=== PATIENT | female | born 1950 | race Caucasian/White ===

== ENCOUNTER 2020-10-26 08:53 | Inpatient (IN) ==
[2020-10-26] MEDS ORDERED: SODIUM CHLORIDE 0.9% 1,000 ML IV STA (09:32)
[2020-10-26 10:16] LABS: Basophils # 0.1 10*3/uL (0.0-0.2); Basophils % 0.6 % (0.0-0.8); Hematocrit 43.1 VOL% (35.7-47.0); Hemoglobin 13.2 GM/DL (12.0-16.0); Immature Granulocytes % 0.5 %; Immature Granulocytes Absolute 0.05 #; Lymphocytes # 1.2 10*3/uL (1.4-4.0); Lymphocytes % 12.6 % (21.3-54.2); Mean Corpuscular HGB Conc 30.6 GM/DL (32-36); Mean Corpuscular Volume 82.1 FL (87-102); Mean Platelet Volume 9.9 FL (9.6-12.0); Neutrophils % 79.3 % (38.7-73.9); Platelet Count 304 T/CUMM (130-400); Red Blood Count 5.25 MC/CUMM (3.8-5.5); White Blood Count 9.6 T/CUMM (4-12)
[2020-10-26 10:25] LABS: Bilirubin,Urine Negative (Negative); Blood, Urine Negative (Negative); Glucose,Urine (UA) >=500 mg/dL (Negative); Ketones,Urine Negative (Negative); Mucus,Urine Occasional /LPF (Occasional); Nitrite,Urine Negative (Negative); Protein,Urine Negative; RBC,Urine 1 /HPF (0-4); Squamous Epithelial Cell,Urine Occasional /HPF (0-10); Urine Appearance Slightly Hazy (Clear); Urine Color Yellow (Yellow); Urine Specific Gravity 1.015 (1.001-1.035); Urine Urobilinogen < 2.0 EU/DL (0.2-1.0)
[2020-10-26 10:44] LABS: Atypical Lymphocytes Few; Band Neutrophils 10 % (0-10); Lymphocytes 15 % (20-55); Segmented Neutrophils 68 % (50-85); Total Cells Counted 100
[2020-10-26 10:45] LABS: Hypochromasia 1+; Microcytosis 1+; Ovalocytes Slight
[2020-10-26 11:02] LABS: Alanine Aminotransferase 27 U/L (13-56); Albumin 3.1 G/DL (3.4-5.0); Alkaline Phosphatase 43 U/L (45-117); Aspartate Amino Transferase 30 U/L (0-37); Blood Urea Nitrogen 41 MG/DL (7-18); Calcium 9.5 MG/DL (8.5-10.1); Carbon Dioxide 19 MMOL/L (21-32); Estimated Glom Filtration Rate 16 ML/MIN; Glucose 231 MG/DL (74-106); Osmolality,Calculated 276.8 MOS/KG (273-304); Potassium 3.8 MMOL/L (3.5-5.1); Sodium 130 MMOL/L (136-145); Total Protein 7.1 G/DL (6.4-8.2)
[2020-10-26] MEDS ORDERED: DEXTROSE 50% 25 GM/50 ML VIAL IV PRN ×2 (12:12)
[2020-10-26] MEDS ORDERED: GLUCAGON 1 MG VIAL IM PRN ×2 (12:12)
[2020-10-26] MEDS: ACETAMINOPHEN 325 MG TABLET PO PRN ×2 (12:53→17:42)
[2020-10-26] MEDS: SODIUM CHLORIDE 0.9% 1,000 ML IV SCH (16:42)
[2020-10-26] MEDS: metroNIDAZOLE INJ 500 MG/100 ML PREMIX IV SCH (17:42)
[2020-10-26] MEDS: HEPARIN 5,000 UNIT/1 ML VIAL SUBCUT SCH (17:42)
[2020-10-26] MEDS: INSULIN REGULAR 100 UNIT/ML SUBCUT SCH ×2 (17:43→21:32)
[2020-10-26] MEDS: PANTOPRAZOLE 40 MG VIAL IV SCH (21:16)
[2020-10-26] MEDS: CIPROFLOXACIN INJ 200 MG/100 ML PREMIX IV SCH (21:17)
[2020-10-26] MEDS: ONDANSETRON 4 MG/2 ML VIAL IV PRN (21:43)
[2020-10-27] MEDS: metroNIDAZOLE INJ 500 MG/100 ML PREMIX IV SCH ×3 (01:19→17:00)
[2020-10-27] MEDS: HEPARIN 5,000 UNIT/1 ML VIAL SUBCUT SCH ×2 (01:21→12:38)
[2020-10-27 05:22] LABS: Basophils % 0.4 % (0.0-0.8); Hematocrit 39.2 VOL% (35.7-47.0); Hemoglobin 11.9 GM/DL (12.0-16.0); Immature Granulocytes % 1.7 %; Immature Granulocytes Absolute 0.12 #; Lymphocytes # 1.1 10*3/uL (1.4-4.0); Lymphocytes % 15.8 % (21.3-54.2); Mean Corpuscular HGB Conc 30.4 GM/DL (32-36); Mean Corpuscular Volume 82.7 FL (87-102); Mean Platelet Volume 10.5 FL (9.6-12.0); Neutrophils % 78.1 % (38.7-73.9); Platelet Count 224 T/CUMM (130-400); Red Blood Count 4.74 MC/CUMM (3.8-5.5); Red Cell Distribution Width 16.2 % (9.3-17.3)
[2020-10-27 05:50] LABS: Band Neutrophils 16 % (0-10); Eosinophils 1 % (0-10); Lymphocytes 10 % (20-55); Segmented Neutrophils 69 % (50-85); Total Cells Counted 100
[2020-10-27 05:51] LABS: Platelet Estimate Normal
[2020-10-27 05:52] LABS: Calcium 8.4 MG/DL (8.5-10.1); Osmolality,Calculated 284.9 MOS/KG (273-304); Potassium 2.9 MMOL/L (3.5-5.1)
[2020-10-27] MEDS: POTASSIUM CHLORIDE RIDER 10 MEQ/100 ML PREMIX IV PRN ×3 (09:41→12:35)
[2020-10-27] MEDS: INSULIN REGULAR 100 UNIT/ML SUBCUT SCH ×4 (09:41→21:51)
[2020-10-27] MEDS: PANTOPRAZOLE 40 MG VIAL IV SCH ×2 (09:42→21:51)
[2020-10-27] MEDS ORDERED: MAGNESIUM SULF RIDER 2 GM/50 ML PREMIX IV ONE (11:27)
[2020-10-27] MEDS ORDERED: POTASSIUM CHLORIDE 20 MEQ TABLET PO ONE ×2 (11:28→20:50)
[2020-10-27] MEDS: ACETAMINOPHEN 325 MG TABLET PO PRN (12:45)
[2020-10-27] MEDS ORDERED: POTASSIUM CHLORIDE 10 MEQ TABLET PO ONE (13:09)
[2020-10-27] MEDS ORDERED: SODIUM BICARB INJ 50 MEQ in SODIUM CHLORIDE 0.45% 1,000 ML IV SCH (14:30)
[2020-10-27] MEDS ORDERED: SODIUM CHLORIDE 0.9% 1,000 ML IV SCH (14:30)
[2020-10-27] MEDS: CIPROFLOXACIN INJ 200 MG/100 ML PREMIX IV SCH (15:51)
[2020-10-27] MEDS ORDERED: SODIUM CHLORIDE 0.9% 500 ML IV ONE ×2 (16:21→17:08)
[2020-10-27 17:43] LABS: Calcium 7.3 MG/DL (8.5-10.1); Osmolality,Calculated 291.5 MOS/KG (273-304); Potassium 3.2 MMOL/L (3.5-5.1)
[2020-10-27 18:58] LABS: Basophils # 0.1 10*3/uL (0.0-0.2); Hematocrit 39.1 VOL% (35.7-47.0); Hemoglobin 12.5 GM/DL (12.0-16.0); Immature Granulocytes % 0.8 %; Immature Granulocytes Absolute 0.04 #; Lymphocytes # 0.8 10*3/uL (1.4-4.0); Lymphocytes % 15.8 % (21.3-54.2); Mean Corpuscular Volume 79.8 FL (87-102); Monocytes % 3.7 % (1.7-12.7); Neutrophils % 78.7 % (38.7-73.9); Platelet Count 158 T/CUMM (130-400); Red Cell Distribution Width 16.3 % (9.3-17.3); White Blood Count 5.1 T/CUMM (4-12)
[2020-10-27] MEDS ORDERED: SODIUM BICARBONATE 50 MEQ/50 ML VIAL IV ONE (19:17)
[2020-10-27] MEDS ORDERED: LACTATED RINGERS 1,000 ML IV ONE (19:18)
[2020-10-27 19:20] LABS: Band Neutrophils 32 % (0-10); Lymphocytes 14 % (20-55); Metamyelocytes 2 %; Myelocytes 1 %; Segmented Neutrophils 49 % (50-85); Total Cells Counted 100
[2020-10-27 19:21] LABS: Anisocytosis 2+; Burr Cells 2+; Macrocytosis 1+; Microcytosis 2+; Platelet Estimate Adequate; Poikilocytosis 2+
[2020-10-27 19:29] LABS: CKMB % 0.6 %
[2020-10-27 19:32] LABS: High Sensitive Troponin I* 141.6 ng/L (0-54)
[2020-10-27] MEDS: ROSUVASTATIN 20 MG TABLET PO SCH (21:51)
[2020-10-27] MEDS: HYDROCORTISONE 100 MG VIAL IV SCH (21:52)
[2020-10-27] MEDS: EZETIMIBE 10 MG TABLET PO SCH (21:52)
[2020-10-27] MEDS: FENOFIBRATE 160 MG TABLET PO SCH (21:52)
[2020-10-27] MEDS: POTASSIUM CHLORIDE RIDER 10 MEQ/100 ML PREMIX IV SCH ×2 (22:42→23:57)
[2020-10-27] MEDS: SODIUM BICARB INJ 150 MEQ in DEXTROSE 5% 850 ML IV SCH (22:51)
[2020-10-27 23:26] LABS: Hepatitis B Core IgM Quant 0.08 Index; Hepatitis B Surface Ag Quant < 0.10 Index; Hepatitis B Surface Ag Result Non-Reactive (NonReactive); Hepatitis C Virus Ab Quant 0.05 Index; Hepatitis C Virus Ab Result Non-Reactive (NonReactive)
[2020-10-28] MEDS: metroNIDAZOLE INJ 500 MG/100 ML PREMIX IV SCH ×3 (00:25→16:56)
[2020-10-28] MEDS: POTASSIUM CHLORIDE RIDER 10 MEQ/100 ML PREMIX IV SCH ×2 (01:00→01:58)
[2020-10-28] MEDS: HEPARIN 5,000 UNIT/1 ML VIAL SUBCUT SCH ×2 (01:26→13:24)
[2020-10-28] MEDS: NOREPINEPHRINE 8 MG in SODIUM CHLORIDE 0.9% 242 ML IV PRN ×2 (02:21→13:48)
[2020-10-28 04:20] LABS: Basophils % 0.3 % (0.0-0.8); Eosinophils % 0.1 % (0.00-10.9); Hematocrit 34.4 VOL% (35.7-47.0); Immature Granulocytes % 0.7 %; Immature Granulocytes Absolute 0.08 #; Lymphocytes # 1.5 10*3/uL (1.4-4.0); Lymphocytes % 13.3 % (21.3-54.2); Mean Corpuscular Volume 78.9 FL (87-102); Mean Platelet Volume 10.4 FL (9.6-12.0); Monocytes % 3.9 % (1.7-12.7); Neutrophils % 81.7 % (38.7-73.9); Platelet Count 328 T/CUMM (130-400); Red Blood Count 4.36 MC/CUMM (3.8-5.5); Red Cell Distribution Width 16.2 % (9.3-17.3); White Blood Count 11.6 T/CUMM (4-12)
[2020-10-28] MEDS ORDERED: LACTATED RINGERS 500 ML IV ONE (04:27)
[2020-10-28 04:41] LABS: Albumin 2.2 G/DL (3.4-5.0); Bilirubin,Total 0.4 MG/DL (0.20-1.00); Calcium 7.4 MG/DL (8.5-10.1); Osmolality,Calculated 296.4 MOS/KG (273-304); Potassium 3.1 MMOL/L (3.5-5.1); Total Protein 5.5 G/DL (6.4-8.2)
[2020-10-28] MEDS ORDERED: LACTATED RINGERS 1,000 ML IV ONE (04:52)
[2020-10-28 05:12] LABS: Band Neutrophils 10 % (0-10); Hypochromasia Slight; Lymphocytes 9 % (20-55); Platelet Estimate Adequate; Segmented Neutrophils 78 % (50-85); Total Cells Counted 100
[2020-10-28 05:13] LABS: Burr Cells Slight; Microcytosis Slight; Ovalocytes Slight
[2020-10-28] MEDS: HYDROCORTISONE 100 MG VIAL IV SCH ×3 (05:30→22:05)
[2020-10-28] MEDS: SODIUM CHLORIDE 0.9% 1,000 ML IV SCH (08:00)
[2020-10-28] MEDS: SODIUM BICARB INJ 150 MEQ in DEXTROSE 5% 850 ML IV SCH ×2 (08:51→20:31)
[2020-10-28] MEDS: INSULIN REGULAR 100 UNIT/ML SUBCUT SCH ×4 (09:23→21:30)
[2020-10-28] MEDS: INSULIN GLARGINE 100 UNIT/ML SUBCUT SCH (09:25)
[2020-10-28] MEDS: LEVOTHYROXINE 50 MCG TABLET PO SCH (09:25)
[2020-10-28] MEDS: POTASSIUM CHLORIDE 20 MEQ TABLET PO PRN ×4 (09:25→16:30)
[2020-10-28] MEDS: PANTOPRAZOLE 40 MG VIAL IV SCH ×2 (09:25→21:30)
[2020-10-28] MEDS: CIPROFLOXACIN INJ 200 MG/100 ML PREMIX IV SCH (11:19)
[2020-10-28] MEDS: LOPERAMIDE 2 MG CAPSULE PO PRN ×3 (14:48→21:30)
[2020-10-28] MEDS: ONDANSETRON 4 MG/2 ML VIAL IV PRN (21:35)
[2020-10-28] MEDS: ROSUVASTATIN 20 MG TABLET PO SCH (22:05)
[2020-10-28] MEDS: FENOFIBRATE 160 MG TABLET PO SCH (22:06)
[2020-10-28] MEDS: EZETIMIBE 10 MG TABLET PO SCH (22:06)
[2020-10-29] MEDS: metroNIDAZOLE INJ 500 MG/100 ML PREMIX IV SCH (00:01)
[2020-10-29] MEDS: HEPARIN 5,000 UNIT/1 ML VIAL SUBCUT SCH ×2 (00:01→12:04)
[2020-10-29] MEDS: CIPROFLOXACIN INJ 200 MG/100 ML PREMIX IV SCH (03:33)
[2020-10-29] MEDS: HYDROCORTISONE 100 MG VIAL IV SCH ×3 (06:00→22:11)
[2020-10-29] MEDS: LOPERAMIDE 2 MG CAPSULE PO PRN (06:00)
[2020-10-29 06:02] LABS: Basophils % 0.3 % (0.0-0.8); Hematocrit 29.2 VOL% (35.7-47.0); Hemoglobin 9.7 GM/DL (12.0-16.0); Immature Granulocytes Absolute 0.09 #; Lymphocytes # 1.5 10*3/uL (1.4-4.0); Lymphocytes % 16.3 % (21.3-54.2); Mean Corpuscular HGB Conc 33.2 GM/DL (32-36); Mean Platelet Volume 10.7 FL (9.6-12.0); Monocytes % 8.3 % (1.7-12.7); Neutrophils % 74.1 % (38.7-73.9); Platelet Count 230 T/CUMM (130-400); Red Blood Count 3.84 MC/CUMM (3.8-5.5); Red Cell Distribution Width 15.9 % (9.3-17.3)
[2020-10-29 06:16] LABS: Bilirubin,Urine Negative (Negative); Blood, Urine Moderate mg/dL (Negative); Glucose,Urine (UA) >=500 mg/dL (Negative); Ketones,Urine Negative (Negative); Mucus,Urine Occasional /LPF (Occasional); Nitrite,Urine Negative (Negative); Protein,Urine Negative; RBC,Urine 3 /HPF (0-4); Urine Appearance CLEAR (Clear); Urine Color Yellow (Yellow); Urine Specific Gravity 1.016 (1.001-1.035); Urine Urobilinogen < 2.0 EU/DL (0.2-1.0)
[2020-10-29 06:28] LABS: Calcium 7.4 MG/DL (8.5-10.1); Osmolality,Calculated 298.5 MOS/KG (273-304)
[2020-10-29 06:34] LABS: Band Neutrophils 4 % (0-10); Hypochromasia 1+; Lymphocytes 13 % (20-55); Microcytosis 1+; Platelet Estimate Adequate; Segmented Neutrophils 74 % (50-85); Total Cells Counted 100
[2020-10-29 07:10] LABS: Potassium 2.5 MMOL/L (3.5-5.1)
[2020-10-29] MEDS: SODIUM BICARB INJ 150 MEQ in DEXTROSE 5% 850 ML IV SCH (07:52)
[2020-10-29] MEDS: POTASSIUM CHLORIDE 20 MEQ TABLET PO PRN (07:54)
[2020-10-29] MEDS: INSULIN REGULAR 100 UNIT/ML SUBCUT SCH ×4 (07:54→21:35)
[2020-10-29] MEDS ORDERED: SODIUM CHLORIDE 0.9% 1,000 ML IV ONE (07:55)
[2020-10-29] MEDS ORDERED: LACTOBACILLUS RHAMNOSUS GG CAPSULE PO SCH (09:00)
[2020-10-29] MEDS: SODIUM BICARB INJ 150 MEQ in STERILE WATER INJ 1,000 ML IV SCH ×2 (09:33→20:06)
[2020-10-29] MEDS: POTASSIUM BICARB EFFERVESCENT 20 MEQ TAB.EFF PO PRN ×4 (10:00→23:38)
[2020-10-29] MEDS: CIPROFLOXACIN INJ 400 MG/200 ML PREMIX IV SCH (10:02)
[2020-10-29] MEDS: LACTOBACILLUS ACIDOPHILUS/BULGARICUS CAPLET PO SCH ×2 (10:02→22:00)
[2020-10-29] MEDS: PANTOPRAZOLE 40 MG VIAL IV SCH ×2 (10:03→22:03)
[2020-10-29] MEDS: LEVOTHYROXINE 50 MCG TABLET PO SCH (10:03)
[2020-10-29] MEDS: INSULIN GLARGINE 100 UNIT/ML SUBCUT SCH (10:03)
[2020-10-29] MEDS ORDERED: PHENYLEPH/MINERAL OIL/PETROLAT 57 GM TUBE TOP PRN (14:36)
[2020-10-29] MEDS ORDERED: HYOSCYAMINE 0.125 MG TABLET PO PRN (14:54)
[2020-10-29] MEDS ORDERED: SIMETHICONE CHEW 125 MG TABLET PO PRN (14:55)
[2020-10-29] MEDS: DOCOSANOL 10% CREAM 2 GM TUBE TOP SCH ×2 (18:48→22:26)
[2020-10-29] MEDS ORDERED: INSULIN GLARGINE 100 UNIT/ML SUBCUT SCH (21:00)
[2020-10-29] MEDS: ROSUVASTATIN 20 MG TABLET PO SCH (22:00)
[2020-10-29] MEDS: FENOFIBRATE 160 MG TABLET PO SCH (22:00)
[2020-10-29] MEDS: EZETIMIBE 10 MG TABLET PO SCH (22:01)
[2020-10-30] MEDS: POTASSIUM CHLORIDE 20 MEQ TABLET PO PRN ×3 (01:53→09:23)
[2020-10-30] MEDS: HEPARIN 5,000 UNIT/1 ML VIAL SUBCUT SCH (01:53)
[2020-10-30 05:47] LABS: Basophils % 0.2 % (0.0-0.8); Hematocrit 29.3 VOL% (35.7-47.0); Hemoglobin 9.3 GM/DL (12.0-16.0); Immature Granulocytes % 0.8 %; Immature Granulocytes Absolute 0.05 #; Lymphocytes # 1.8 10*3/uL (1.4-4.0); Lymphocytes % 27.9 % (21.3-54.2); Mean Corpuscular HGB Conc 31.7 GM/DL (32-36); Mean Corpuscular Volume 80.3 FL (87-102); Mean Platelet Volume 11.1 FL (9.6-12.0); Monocytes % 9.1 % (1.7-12.7); Platelet Count 176 T/CUMM (130-400); Red Blood Count 3.65 MC/CUMM (3.8-5.5); White Blood Count 6.4 T/CUMM (4-12)
[2020-10-30 06:20] LABS: Calcium 7.1 MG/DL (8.5-10.1); Potassium 3.2 MMOL/L (3.5-5.1)
[2020-10-30] MEDS: HYDROCORTISONE 100 MG VIAL IV SCH ×3 (07:10→21:17)
[2020-10-30] MEDS: DOCOSANOL 10% CREAM 2 GM TUBE TOP SCH ×5 (07:11→21:49)
[2020-10-30] MEDS ORDERED: SODIUM CHLORIDE 0.45% 1,000 ML IV SCH (08:00)
[2020-10-30] MEDS: SODIUM CHLOR 0.45% KCL 20 MEQ 20 MEQ/1,000 ML BAG IV SCH ×2 (09:14→23:19)
[2020-10-30] MEDS: ENOXAPARIN 40 MG/0.4 ML SYRINGE SUBCUT SCH (09:23)
[2020-10-30] MEDS: LEVOTHYROXINE 50 MCG TABLET PO SCH (09:24)
[2020-10-30] MEDS: LACTOBACILLUS ACIDOPHILUS/BULGARICUS CAPLET PO SCH ×2 (09:24→21:16)
[2020-10-30] MEDS: CLOPIDOGREL 75 MG TABLET PO SCH (09:24)
[2020-10-30] MEDS: CALCIUM (CARBONATE)/VITAMIN D 600 MG-400 UNIT TABLET PO SCH (09:24)
[2020-10-30] MEDS: PANTOPRAZOLE 40 MG TABLET PO SCH (09:24)
[2020-10-30] MEDS: ASPIRIN EC 81 MG TABLET PO SCH (09:24)
[2020-10-30] MEDS: CIPROFLOXACIN INJ 400 MG/200 ML PREMIX IV SCH (09:25)
[2020-10-30] MEDS: SODIUM BICARB INJ 150 MEQ in STERILE WATER INJ 1,000 ML IV SCH (09:41)
[2020-10-30] MEDS: INSULIN REGULAR 100 UNIT/ML SUBCUT SCH ×4 (09:45→21:49)
[2020-10-30] MEDS ORDERED: HYDROCORTISONE 100 MG VIAL IV SCH (13:00)
[2020-10-30] MEDS ORDERED: INSULIN GLARGINE 100 UNIT/ML SUBCUT SCH (21:00)
[2020-10-30] MEDS: ROSUVASTATIN 20 MG TABLET PO SCH (21:17)
[2020-10-30] MEDS: EZETIMIBE 10 MG TABLET PO SCH (21:18)
[2020-10-30] MEDS: FENOFIBRATE 160 MG TABLET PO SCH (21:18)
[2020-10-31 05:38] LABS: Basophils % 0.1 % (0.0-0.8); Hematocrit 34.5 VOL% (35.7-47.0); Hemoglobin 10.2 GM/DL (12.0-16.0); Lymphocytes # 2.5 10*3/uL (1.4-4.0); Lymphocytes % 24.8 % (21.3-54.2); Mean Corpuscular HGB Conc 29.6 GM/DL (32-36); Mean Corpuscular Volume 84.6 FL (87-102); Mean Platelet Volume 10.9 FL (9.6-12.0); Monocytes % 8.4 % (1.7-12.7); Neutrophils % 64.7 % (38.7-73.9); Platelet Count 241 T/CUMM (130-400); Red Blood Count 4.08 MC/CUMM (3.8-5.5); Red Cell Distribution Width 16.1 % (9.3-17.3); White Blood Count 10.1 T/CUMM (4-12)
[2020-10-31] MEDS: HYDROCORTISONE 100 MG VIAL IV SCH (05:56)
[2020-10-31] MEDS: DOCOSANOL 10% CREAM 2 GM TUBE TOP SCH ×2 (05:57→11:03)
[2020-10-31 06:03] LABS: Calcium 7.9 MG/DL (8.5-10.1); Osmolality,Calculated 284.5 MOS/KG (273-304); Potassium 3.6 MMOL/L (3.5-5.1)
[2020-10-31] MEDS: INSULIN REGULAR 100 UNIT/ML SUBCUT SCH (07:42)
[2020-10-31 08:02] VITALS: BP 91/55
[2020-10-31] MEDS: ENOXAPARIN 40 MG/0.4 ML SYRINGE SUBCUT SCH (09:03)
[2020-10-31] MEDS: LACTOBACILLUS ACIDOPHILUS/BULGARICUS CAPLET PO SCH (09:04)
[2020-10-31] MEDS: LEVOTHYROXINE 50 MCG TABLET PO SCH (09:04)
[2020-10-31] MEDS: CALCIUM (CARBONATE)/VITAMIN D 600 MG-400 UNIT TABLET PO SCH (09:04)
[2020-10-31] MEDS: PANTOPRAZOLE 40 MG TABLET PO SCH (09:04)
[2020-10-31] MEDS: CIPROFLOXACIN INJ 400 MG/200 ML PREMIX IV SCH (09:04)
[2020-10-31] MEDS: CLOPIDOGREL 75 MG TABLET PO SCH (09:04)
[2020-10-31] MEDS: ASPIRIN EC 81 MG TABLET PO SCH (09:04)
== END 2020-10-31 11:02 | disposition home health service (06) | DRG 871 ==
LOC: N.ED 08:53 → N.EDINP 08:53 → SUATTDRO 12:12 → N.5E 12:37 → N.ICU 10-27 21:29 → SUATTDRO 10-28 07:11 → N.5E 10-30 10:33
PROVIDERS: ADMIT Hospitalist; ATTEND Internal Medicine